=== PATIENT | female | born 1970 | race Caucasian/White ===

== ENCOUNTER 2016-10-29 15:28 | Emergency (ER) | payer SELFPAY ==
[~2016-10-29] VITALS: Ht 172.7 cm; Wt 73.0 kg
[2016-10-29 15:29] VITALS: BP 139/75; PULSE 93; RESP 12; TEMP 98.8; O2SAT 100
[2016-10-29] MEDS ORDERED: IBUPROFEN 800 MG TAB PO ONE (17:00)
[2016-10-29] MEDS ORDERED: CLIN1CAP5 PO (17:54)
[2016-10-29] MEDS ORDERED: IBUP800T23 PO (17:54)
--- NOTE | 2016-10-29 17:55 | PD ---
HPI Chief Complaint: Oral / Dental Pain or Problem Time Seen by Provider: 17:00 Travel History International Travel<30 days: No Contact w/Intl Traveler<30days: No Traveled to known affect area: No History of Present Illness HPI Patient is a 46 year old female who presents emergency Department evaluation of left upper tooth pain. Patient states the pain started approximately 3 days ago. She is a resident at the [facility] and was sent here to be evaluated. Patient states the pain is a 6 out of 10 and describes it as throbbing. Patient reports that her has been checked for a while. She denies any fever, chills, swelling on her gums, dysphagia. PFSH Past Medical History Medical History: Denies Significant Hx ?: Not LMP: 09/28/16 Social History Alcohol Use: No Tobacco Use: Yes Substance Use: No Allergies-Medications (Allergen,Severity, Reaction): Coded Allergies: Penicillin (Verified Allergy, Unknown, 10/29/16) Review of Systems Except as stated in HPI: all other systems reviewed are Neg HENT: Positive: Dental Difficulties Physical Exam Narrative GENERAL: Well-nourished, well-developed patient. SKIN: Warm and dry. HEAD: Normocephalic. EYES: No scleral icterus. No injection or drainage MOUTH: Mucous membranes moist, no lesions, tongue and gums appear normal. Right upper incisor is chipped NECK: Supple, trachea midline. No JVD or lymphadenopathy. CARDIOVASCULAR: Regular rate and rhythm without murmurs, gallops, or rubs. RESPIRATORY: Breath sounds equal bilaterally. No accessory muscle use. GASTROINTESTINAL: Abdomen soft, non-tender, nondistended. MUSCULOSKELETAL: No cyanosis, or edema. BACK: Nontender without obvious deformity. No CVA tenderness. Data Data Last Documented VS Vital Signs Date Time Temp Pulse Resp B/P Pulse Ox O2 Delivery O2 Flow Rate FiO2 10/29/16 15:29 98.8 93 12 139/75 100 Room Air Orders Ibuprofen (Motrin) (10/29/16 17:00) [facility] Medical Decision Making Medical Screen Exam Complete: Yes Emergency Medical Condition: Yes Interpretation(s) Vital Signs Date Time Temp Pulse Resp B/P Pulse Ox O2 Delivery O2 Flow Rate FiO2 10/29/16 15:29 98.8 93 12 139/75 100 Room Air Differential Diagnosis Dental caries versus dentalgia versus abscess versus other Narrative Course Patient is a 46-year-old female who presented to emergency department for evaluation of dental pain. Pain started 3 days ago. Pain is likely secondary to root exposure. Patient was advised that she will need to follow-up with the dentist. She'll be provided with a prescription for an antibiotic as well as anti-inflammatory medication. Patient verbalized understanding of need for follow-up with a dentist. Patient is stable for discharge. Diagnosis Primary Impression: Dental caries, unspecified Referrals: Dentist Patient Instructions: Dental Caries (DC), General Instructions Additional Instructions: Follow-up with a dentist Return to emergency department for any new or worsening symptoms Med/Other Pt SpecificInfo: Prescription(s) given Scripts Ibuprofen 800 Mg [id number] Mg PO Q6HR PRN (PAIN) 10 Days Ref 0 Prov:Faina Angulo 10/29/16 Clindamycin 150 Mg Grb765 Mg PO Q8HR 10 Days Ref 0 Prov:Faina Angulo 10/29/16 Disposition: 01 DISCHARGE HOME Condition: Stable Faina Angulo Oct 29, 2016 17:55
== END 2016-10-29 18:08 | disposition home or self-care (01) ==
LOC: NEPB 15:28
DX: K02.9 Dental caries, unspecified (principal); Z72.0 Tobacco use
CPT/HCPCS: 99282